=== PATIENT | male | born 1985 | race Caucasian/White ===

== ENCOUNTER 2022-06-15 19:46 | Emergency (ER) | payer OTHER ==
[2022-06-15] MEDS ORDERED: Sodium Chloride 0.9% 2.5 ML Syringe FLUSH PRN (20:30)
[2022-06-15] MEDS ORDERED: Sodium Chloride 0.9% 10 ML Syringe FLUSH PRN (20:30)
[2022-06-15] MEDS ORDERED: Ondansetron 4 MG/2 ML SDV IVPUSH STA (20:31)
[2022-06-15] MEDS ORDERED: Sodium Chloride 0.9% 1,000 ML IV STA ×2 (20:31→21:38)
[2022-06-15 21:29] LABS: CARBON DIOXIDE,CO2 22.7 mmol/L (21.0-32.0); POTASSIUM,K 3.8 mmol/L (3.5-5.1)
[2022-06-15] MEDS ORDERED: Iopamidol 755 Mg/ML 100 ML Bottle IVPUSH ONE (22:11)
[2022-06-15] MEDS ORDERED: Morphine 4 MG/ML Syringe IVPUSH ONE (23:10)
[2022-06-15] MEDS ORDERED: Benzocaine 20% Topical Spray UD MUCMEM ONE (23:39)
[2022-06-15] MEDS ORDERED: Ondansetron 4 MG/2 ML SDV ONE (23:56)
[2022-06-16] MEDS ORDERED: Ondansetron 4 MG/2 ML SDV IVPUSH STA (00:15)
== END 2022-06-16 00:45 ==
LOC: MERGE 19:46 → MW.ED 19:46
DX: K56.609 Unspecified intestinal obstruction, unspecified as to partial versus complete obstruction (principal); Z90.49 Acquired absence of other specified parts of digestive tract; Z72.0 Tobacco use
CPT/HCPCS: 36415; 71045; 74177; 80053; 83605; 83690; 85025; 96361; 96374; 96375; 96376; 99285; A9270; J2270; J2405; J3490; J7030; Q9967